=== PATIENT | female | born 1970 | race Two or more races ===

== ENCOUNTER 2019-05-19 09:09 | Day surgery (SDC) | payer OTHER | END 2019-05-19 14:00 | disposition home or self-care (01) | LOC: AMB-ENDOS 09:09 | DX: K57.32 Diverticulitis of large intestine without perforation or abscess without bleeding (principal); K57.30 Diverticulosis of large intestine without perforation or abscess without bleeding; K64.1 Second degree hemorrhoids ==

== ENCOUNTER 2022-01-07 10:24 | Inpatient (IN) | payer OTHER ==
[~2022-01-07] VITALS: Ht 165.1 cm; Wt 71.2 kg
[2022-01-07] MEDS ORDERED: COZAAR25 MG PO (10:50)
[2022-01-07] MEDS ORDERED: CLIMARA1 EAC1 TOP (10:52)
[2022-01-13] MEDS ORDERED: AMOX-CLAV 875-1 EACH PO (12:09)
[2022-01-13] MEDS ORDERED: ACID-PEP20 MG PO (12:09)
[2022-01-13] MEDS ORDERED: COZAAR25 MG PO (12:09)
== END 2022-01-13 14:18 | disposition home or self-care (01) | DRG 392 ==
LOC: ER 10:24 → SURH 18:24 → SEC-K 18:24 → SURH 23:15
PROVIDERS: ADMIT Internal Medicine Geriatric Medicine; ATTEND Internal Medicine Geriatric Medicine
PROC: BW21YZZ Computerized Tomography (CT Scan) of Abdomen and Pelvis using Other Contrast (ICD-10-PCS; principal; 2022-01-07)
PROC: 02HV33Z Insertion of Infusion Device into Superior Vena Cava, Percutaneous Approach (ICD-10-PCS; 2022-01-08)
PROC: 3E0436Z Introduction of Nutritional Substance into Central Vein, Percutaneous Approach (ICD-10-PCS; 2022-01-08)
DX: K57.32 Diverticulitis of large intestine without perforation or abscess without bleeding (principal); N39.0 Urinary tract infection, site not specified; B37.89 Other sites of candidiasis; N20.0 Calculus of kidney; I11.9 Hypertensive heart disease without heart failure; D72.829 Elevated white blood cell count, unspecified; Z20.822 Contact with and (suspected) exposure to COVID-19

== ENCOUNTER 2022-01-28 10:00 | Inpatient (IN) | payer OTHER ==
[~2022-01-28] VITALS: Ht 170.2 cm; Wt 68.0 kg
[~2022-01-28 10:00] MED LIST: ACID-PEP20 MG PO; AMOX-CLAV 875-1 EACH PO; CLIMARA1 EAC1 TOP; COZAAR25 MG PO
[2022-02-04] MEDS ORDERED: INTESTINEX680 M1 (10:15)
== END 2022-02-05 09:36 | disposition home or self-care (01) | DRG 330 ==
LOC: SURH 02-03 07:00 → O/R 02-03 07:44 → SURH 02-03 10:00
PROVIDERS: ADMIT Colon & Rectal Surgery; ATTEND Colon & Rectal Surgery
PROC: 0DTN4ZZ Resection of Sigmoid Colon, Percutaneous Endoscopic Approach (ICD-10-PCS; 2022-02-03)
PROC: 0DJD8ZZ Inspection of Lower Intestinal Tract, Via Natural or Artificial Opening Endoscopic (ICD-10-PCS; 2022-02-03)
PROC: 0DBP4ZZ Excision of Rectum, Percutaneous Endoscopic Approach (ICD-10-PCS; principal; 2022-02-03 07:00)
DX: K57.32 Diverticulitis of large intestine without perforation or abscess without bleeding (principal); K92.1 Melena; R10.84 Generalized abdominal pain; R10.32 Left lower quadrant pain